=== PATIENT | female | born 1940 | race Caucasian/White ===

== ENCOUNTER → 2016-12-07 | Outpatient (CLI) | payer MEDICARE, BC ==
[~2016-12-07] MED LIST: NO HOME MEDICATIONS
== END ==
LOC: MC.RAD 12:48
DX: Z12.31 Encounter for screening mammogram for malignant neoplasm of breast (principal); N60.19 Diffuse cystic mastopathy of unspecified breast

== ENCOUNTER → 2017-12-19 | Outpatient (CLI) | payer MEDICARE, BC | LOC: MC.RAD 09:18 | DX: Z12.31 Encounter for screening mammogram for malignant neoplasm of breast (principal) ==

== ENCOUNTER → 2018-12-27 | Outpatient (CLI) | payer MEDICARE, BC | LOC: MC.RAD 10:59 | DX: Z12.31 Encounter for screening mammogram for malignant neoplasm of breast (principal) ==

== ENCOUNTER 2019-08-04 20:34 | Emergency (ER) | payer MEDICARE, BC ==
[~2019-08-04] VITALS: Ht 165.1 cm; Wt 65.9 kg
[2019-08-04 21:13] LABS: COLLECTION METHOD CLEAN CATCH
[2019-08-04 21:22] LABS: BASO % 0.3 % (0.0-2.0); GRAN % 88.9 % (42.2-75.2); HEMOGLOBIN 10.1 g/dl (12.5-16.0); LYMPH # 0.2 (1.2-3.4); MEAN CELL VOLUME 90 fl (80.0-100.0); MEAN CORPUSCULAR HEMOGLOBIN 31 pg (27.0-31.0); MEAN CORPUSCULAR HGB CONC 35 g/dl (33.0-37.0); MEAN PLATELET VOLUME 9.9 fl (7.4-10.4); MONO # 0.1 (0.1-0.6); MONO % 3.9 % (1.7-9.3); PLATELET COUNT 132 K/mm3 (130-400); RED BLOOD COUNT 3.25 M/mm3 (4.10-5.30); REDCELL DISTRIBUTION WIDTH-CV 14.5 % (11.5-14.5)
[2019-08-04 21:23] LABS: HEMATOCRIT 29.2 % (37.0-47.0); MUCOUS Present /lpf; PH 5 (5-8); SQUAMOUS EPITHELIAL 0-2 /hpf; URINE APPEARANCE Hazy; URINE BACTERIA None Seen /hpf; URINE BILIRUBIN Negative (NEGATIVE); URINE BLOOD 1+ (NEGATIVE); URINE COLOR Amber; URINE GLUCOSE Negative (NEGATIVE); URINE KETONE Negative (NEGATIVE); URINE LEUKOCYTE ESTERASE Negative (NEGATIVE); URINE NITRATE Negative (NEGATIVE); URINE PROTEIN(semi-quant) 2+ (NEGATIVE); URINE UROBILINOGEN >=4.0 mg/dL (NEGATIVE)
[2019-08-04 21:25] LABS: INR 1.3 (0.8-3.0); PROTHROMBIN TIME 14.1 SECONDS (9.7-12.8)
[2019-08-04] MEDS ORDERED: OMNICEF 300MG300 MG PO (21:34)
[2019-08-04 21:39] LABS: ALANINE AMINOTRANSFERASE 40 U/L (4-34); ALBUMIN 3.9 gm/dL (3.5-5.0); ALKALINE PHOSPHATASE 62 U/L (50-136); ANION GAP 8 mmol/L (7-16); AST,SGOT 72 U/L (15-37); BILIRUBIN,TOTAL 1.9 mg/dL (0.0-1.0); BLOOD UREA NITROGEN 20 mg/dL (7-17); C-REACTIVE PROTEIN 4.2 mg/dL (0.0-0.9); CALCIUM 8.7 mg/dL (8.4-10.2); CARBON DIOXIDE 25 mmol/L (22-30); CHLORIDE 97 mmol/L (98-107); CREATININE, serum 1.03 (0.52-1.25); GLUCOSE 140 mg/dL (74-106); LIPASE 83 U/L (23-300); POTASSIUM 3.6 mmol/L (3.4-5.0); SODIUM 130 mmol/L (137-145); TOTAL PROTEIN 6.7 gm/dL (6.4-8.2)
[2019-08-04 21:53] LABS: TROPONIN-I < 0.012 ng/mL (0.000-0.035)
[2019-08-04 22:45] VITALS: BP 126/62; PULSE 95; TEMP 99.3
== END 2019-08-04 22:50 | disposition home or self-care (01) ==
LOC: COL.ER 20:34
PROVIDERS: Emergency Medicine
DX: R35.0 Frequency of micturition (principal); I10 Essential (primary) hypertension
CPT/HCPCS: J0696; J7030

== ENCOUNTER → 2019-08-05 | Outpatient (CLI) | payer MEDICARE, BC ==
[~2019-08-05] MED LIST changes: +OMNICEF 300MG300 MG PO
== END ==
LOC: COL.RAD 08:51
DX: K80.20 Calculus of gallbladder without cholecystitis without obstruction (principal); K82.8 Other specified diseases of gallbladder; R79.89 Other specified abnormal findings of blood chemistry

== ENCOUNTER → 2019-08-16 | Outpatient (CLI) | payer MEDICARE, BC | LOC: COL.RAD 07:56 | DX: R63.4 Abnormal weight loss (principal); K76.9 Liver disease, unspecified; K80.10 Calculus of gallbladder with chronic cholecystitis without obstruction | CPT/HCPCS: Q9967 ==

== ENCOUNTER 2019-09-12 09:33 | Day surgery (SDC) | payer MEDICARE, BC ==
[2019-09-12] VITALS (9 sets, daily range): BP systolic 126–176; BP diastolic 59–72; PULSE 63–69; TEMP 97.2–97.7
[~2019-09-12] VITALS: Ht 165.1 cm; Wt 57.4 kg
[2019-09-12] MEDS ORDERED: EVISTA 60MG60 MG/TAB PO (10:39)
[2019-09-12] MEDS ORDERED: VITAMIN D31000 I1 PO (10:40)
--- NOTE | 2019-09-12 13:40 | NUR ---
Patient returns to room 2 per cart from PACU accompanied by Radha IZAGUIRRE and is awake and alert. Lap sites x5 with wound edges well approximated. IV fluids infusing and site is free of redness. Siderails up x2. Temp 97.4. Spouse in room.
--- NOTE | 2019-09-12 13:55 | NUR ---
Resting with eyes closed when not disturbed.
--- NOTE | 2019-09-12 14:10 | NUR ---
Sats 100% on 2L per nasal cannula. Continues to rest and offers no complaints of pain.
[2019-09-12] MEDS ORDERED: ULTRAM 50MG TAB50 MG PO (14:24)
--- NOTE | 2019-09-12 14:25 | NUR ---
More awake and drinking water. Denies pain or nausea.
--- NOTE | 2019-09-12 14:40 | NUR ---
Continues to rest without complaints.
--- NOTE | 2019-09-12 15:10 | NUR ---
Drinking Coke and more awake.
--- NOTE | 2019-09-12 15:40 | NUR ---
IV to INT and ambulatory across the hallway to the bathroom. Voids and returns to the room. Tolerated activity well. Sitting on the edge of the cart eating crackers. Denies need for pain medication. Spouse in room.
--- NOTE | 2019-09-12 16:00 | NUR ---
Tolerated crackers and water. Denies pain or nausea. Patient dresses self and IV discontinued.
--- NOTE | 2019-09-12 16:12 | NUR ---
Dismissal instructions given and signed. Provided script for Ultram and patient continues to deny pain or nausea.
--- NOTE | 2019-09-12 16:23 | NUR ---
Patient dismissed to home driven by spouse and taken to the front door per wheelchair by this RN and assisted into vehicle with instructions in hand.
== END 2019-09-12 16:23 | disposition home or self-care (01) ==
LOC: SDCO 09:33
DX: K80.10 Calculus of gallbladder with chronic cholecystitis without obstruction (principal); Z79.899 Other long term (current) drug therapy; Z90.710 Acquired absence of both cervix and uterus
CPT/HCPCS: J0360; J2405; J2704; J3010; J7120; Q9967

== ENCOUNTER → 2019-12-30 | Outpatient (CLI) | payer MEDICARE, BC ==
[~2019-12-30] MED LIST changes: +EVISTA 60MG60 MG/TAB PO; +ULTRAM 50MG TAB50 MG PO; +VITAMIN D31000 I1 PO
== END ==
LOC: MC.RAD 11:02
DX: Z12.31 Encounter for screening mammogram for malignant neoplasm of breast (principal)

== ENCOUNTER → 2020-01-29 | Outpatient (CLI) | payer MEDICARE, BC | LOC: COL.RAD 01-10 10:00 | DX: R16.1 Splenomegaly, not elsewhere classified (principal); K63.89 Other specified diseases of intestine; Z90.49 Acquired absence of other specified parts of digestive tract; Z90.710 Acquired absence of both cervix and uterus | CPT/HCPCS: Q9967 ==

== ENCOUNTER → 2021-01-08 | Outpatient (CLI) | payer MEDICARE, BC | LOC: MC.RAD 12:53 | DX: Z12.31 Encounter for screening mammogram for malignant neoplasm of breast (principal) ==

== ENCOUNTER → 2023-01-19 | Outpatient (CLI) | payer MEDICARE, BC | LOC: CANSCHCLI → MC.RAD 13:21 | DX: Z12.31 Encounter for screening mammogram for malignant neoplasm of breast (principal) ==

== ENCOUNTER → 2024-01-22 | Outpatient (CLI) | payer MEDICARE, BC | LOC: MC.RAD 11:04 | DX: Z12.31 Encounter for screening mammogram for malignant neoplasm of breast (principal) ==